=== PATIENT | female | born 1990 | race Caucasian/White ===

== ENCOUNTER 2022-05-16 08:07 | Emergency (ER) | payer OTHER ==
[2022-05-16] MEDS ORDERED: LORazepam 2 MG/ML SDV IM ONE (08:33)
== END 2022-05-16 09:20 | disposition home or self-care (01) ==
LOC: FB.ED 08:07
DX: F41.0 Panic disorder [episodic paroxysmal anxiety] (principal)
CPT/HCPCS: 96372; 99284; A9270-GY; J2060